=== PATIENT | female | born 1960 | race African-American/Black ===

== ENCOUNTER 2019-12-14 18:06 | Emergency (ER) | payer BC ==
[2019-12-14] MEDS ORDERED: IBUPROFEN 400 MG TABLET PO ONE (18:18)
[2019-12-14] MEDS ORDERED: NORMAL SALINE 1000 ML 1,000 ML IV ONE (19:15)
[2019-12-14] MEDS ORDERED: ACETAMINOPHEN 325 MG TABLET PO ONE (19:16)
--- NOTE | 2019-12-14 19:19 | ER Document Report ---
ED Flu Like - General TRAVEL OUTSIDE OF THE [place] IN LAST 30 DAYS: No <ROSALIE CANAS J - Last Filed: 12/14/19 19:16> <SACHI PRATHER Malia - Last Filed: 12/15/19 00:36> - General Chief Complaint: Fever Stated Complaint: FEVER/COUGH Time Seen by Provider: 12/14/19 19:09 Primary Care Provider: AUDELIA NGUYEN MD [Primary Care Provider] - Follow up in 3-5 days Notes: CHIEF COMPLAINT: Cough and fever for 1 day HPI: 59-year-old female presenting to the emergency department complaining of cough and fever for 1 day. Mild headache. Denies chest pain shortness of breath abdominal pain nausea vomiting or dysuria. Patient states cough is dry. Patient does complain of generalized myalgia ROS: See HPI - all other systems were reviewed and are otherwise negative Constitutional: + fever Eyes: no drainage, no blurred vision ENT: no runny nose, no sore throat Cardiovascular: no chest pain Resp: no SOB, + cough GI: no vomiting, no diarrhea, no abdominal pain : no dysuria Integumentary: no rash Allergy: no hives Musculoskeletal: no extremity pain or swelling Neurological: no numbness/tingling, no weakness MEDICATIONS: I agree with the patient medications as charted by the RN. ALLERGIES: I agree with the allergies as charted by the RN. PAST MEDICAL HISTORY/PAST SURGICAL HISTORY: Reviewed and agree as charted by RN. SOCIAL HISTORY: Reviewed and agree as charted by RN. FAMILY HISTORY: No significant familial comorbid conditions directly related to patient complaint EXAM: Reviewed vital signs as charted by RN. CONSTITUTIONAL: Alert and oriented and responds appropriately to questions. Well-appearing; well-nourished, mild distress secondary to discomfort HEAD: Normocephalic; atraumatic EYES: PERRL; Conjunctivae clear, sclerae non-icteric ENT: normal nose; no rhinorrhea; moist mucous membranes; pharynx without lesions noted, no uvula edema or deviation, no tonsillar hypertrophy, phonation normal NECK: Supple without meningismus; non-tender; no cervical lymphadenopathy, no masses CARD: RRR; no murmurs, no clicks, no rubs, no gallops; symmetric distal pulses RESP: Normal chest excursion without splinting or tachypnea; breath sounds clear and equal bilaterally; no wheezes, no rhonchi, no rales, pulse oximetry 97% on room air not hypoxic ABD/GI: Normal bowel sounds; non-distended; soft, non-tender, no rebound, no guarding; no palpable organomegaly or masses. BACK: The back appears normal and is non-tender to palpation, there is no CVA tenderness EXT: Normal ROM in all joints; non-tender to palpation; no cyanosis, no effusion s, no edema SKIN: Normal color for age and race; warm; diaphoretic; good turgor; no acute lesions noted NEURO: Moves all extremities equally; Motor and sensory function intact PSYCH: The patient's mood and manner are appropriate. Grooming and personal hygiene are appropriate. MDM: 59-year-old female with upper respiratory symptoms for 1 day. Will obtain chest x-ray for pneumonia. Will obtain flu swab. Will check basic screening labs, hydrate patient treat fever and reassess. Report will be given to oncoming shift to follow and disposition (ROSALIE CANAS) - Related Data Allergies/Adverse Reactions: aspirin Allergy (Verified 12/14/19 18:14) Sulfa (Sulfonamide Antibiotics) Allergy (Verified 12/14/19 18:14) Past Medical History - Social History Smoking Status: Never Smoker Patient has suicidal ideation: No Patient has homicidal ideation: No <ROSALIE CANAS - Last Filed: 12/14/19 19:16> - Social History Smoking Status: Unknown if Ever Smoked Family History: Other - did not review <SACHI PRATHER R - Last Filed: 12/15/19 00:36> Physical Exam - Vital signs Vitals: Temp Pulse Resp BP Pulse Ox 101.6 F H 78 16 153/90 H 97 12/14/19 18:14 12/14/19 18:14 12/14/19 18:14 12/14/19 18:14 12/14/19 18:14 Course - Laboratory Result Diagrams: 12/14/19 20:21 12/14/19 20:21 <SACHI PRATHER - Last Filed: 12/15/19 00:36> - Re-evaluation Re-evalutation: 12/14/19 20:15 Report received from MANSI Foster. Evaluated pt and discussed results with pt. Offered testing for Coronavirus and pt declines at this time, states she has had no overseas travel or contact with anyone that has travelled overseas. Pt still finishing up IV fluids. Pt states she is feeling better. Return precautions given. Pt voices understanding and agrees with plan of care. (SACHI PRATHER) - Vital Signs Vital signs: Temp Pulse Resp BP Pulse Ox 98.2 F 68 18 155/70 H 99 12/14/19 21:45 12/14/19 21:45 12/14/19 21:45 12/14/19 21:45 12/14/19 21:45 - Laboratory Laboratory results interpreted by me: 12/14/19 12/14/19 20:21 20:21 Hgb 10.7 L Hct 33.1 L MCV 79 L MCH 25.6 L RDW 16.2 H [place] % (Auto) 17.6 H Sodium 135.9 L Glucose 111 H Discharge <ROSALIE CANAS - Last Filed: 12/14/19 19:16> <SACHI PRATHER - Last Filed: 12/15/19 00:36> - Discharge Clinical Impression: Influenza-like syndrome Condition: Stable Disposition: HOME, SELF-CARE Instructions: Viral Syndrome (OM) Additional Instructions: Your chest x-ray did not show any pneumonia. Your flu test was negative however your symptoms are consistent with flu like illness. Please alternate Tylenol/Motrin every 3 hours, for example: take tylenol now, and then take Motrin 3 hours later, and then take Tylenol 3 hours later, etc. Take zofran as needed for nausea/vomiting. Rest. Drink plenty of fluids. Follow up with your primary care doctor in 3-5 days. Return to ER for any worsening symptoms, including coughing up blood, shortness of breath, fever not controlled by medi cation, vomiting not controlled by medication, abdominal pain, chest pain, dizziness, or any other symptoms that are concerning to you. Prescriptions: Ondansetron [Zofran Odt 4 mg Tablet] 4 mg PO Q4HP PRN #30 tab.rapdis PRN Reason: Forms: Return to Work Referrals: AUDELIA NGUYEN MD [Primary Care Provider] - Follow up in 3-5 days
--- NOTE | 2019-12-14 19:47 | RADIOLOGY REPORT (SQ) ---
EXAM DESCRIPTION: CHEST 2 VIEWS COMPLETED DATE/TIME: 12/14/2019 7:40 pm REASON FOR STUDY: cough fever COMPARISON: None. EXAM PARAMETERS: NUMBER OF VIEWS: two views TECHNIQUE: Digital Frontal and Lateral radiographic views of the chest acquired. RADIATION DOSE: NA LIMITATIONS: none FINDINGS: LUNGS AND PLEURA: No opacities, masses or pneumothorax. No pleural effusion. MEDIASTINUM AND HILAR STRUCTURES: No masses or contour abnormalities. HEART AND VASCULAR STRUCTURES: Heart normal size. No evidence for failure. BONES: No acute findings. HARDWARE: None in the chest. OTHER: No other significant finding. IMPRESSION: NO ACUTE RADIOGRAPHIC FINDING IN THE CHEST. TECHNICAL DOCUMENTATION: JOB ID: [id number] [employer]- All Rights Reserved Reading location - IP/workstation name: [email or web address]
[2019-12-14 19:48] LABS: A TYPE INFLUENZA AG NEGATIVE (NEGATIVE); B INFLUENZA AG NEGATIVE (NEGATIVE)
[2019-12-14 20:39] LABS: ABSOLUTE MONOCYTES (AUTO) 0.8 10^3/uL (0.1-1.4); ABSOLUTE NEUT (AUTO) 2.2 10^3/uL (1.7-8.2); BASOPHILS % (AUTO) 0.7 % (0-2); EOSINOPHILS % (AUTO) 0.1 % (0-6); TOTAL CELLS COUNTED % (AUTO) 100 %
[2019-12-14 20:43] LABS: HEMATOCRIT 33.1 % (36.0-47.0); HEMOGLOBIN 10.7 g/dL (12.0-15.5); MEAN CORPUSCULAR HEMOGLOBIN 25.6 pg (27.0-33.4); MEAN CORPUSCULAR HGB CONC 32.5 g/dL (32.0-36.0); MEAN CORPUSCULAR VOLUME 79 fl (80-97); PLATELET COUNT 213 10^3/uL (150-450); RED CELL DISTRIBUTION WIDTH 16.2 % (11.5-14.0); SEGMENTED NEUTROPHILS % (AUTO) 50.7 % (42-78); WHITE BLOOD COUNT 4.4 10^3/uL (4.0-10.5)
[2019-12-14 20:44] LABS: ABSOLUTE LYMPHOCYTES (AUTO) 1.4 10^3/uL (0.5-4.7); LYMPHOCYTES % (AUTO) 30.9 % (13-45); MONOCYTES % (AUTO) 17.6 % (3-13)
[2019-12-14 20:49] LABS: ALBUMIN 3.6 g/dL (3.5-5.0); ALKALINE PHOSPHATASE 83 U/L (38-126); ANION GAP 8 (5-19); ASPARTATE AMINO TRANSFERASE 20 U/L (14-36); BILIRUBIN,DIRECT 0.2 mg/dL (0.0-0.4); BILIRUBIN,TOTAL 0.5 mg/dL (0.2-1.3); BLOOD UREA NITROGEN 10 mg/dL (7-20); CALCIUM 8.4 mg/dL (8.4-10.2); CARBON DIOXIDE 27 mmol/L (22-30); CHLORIDE 101 mmol/L (98-107); GLUCOSE 111 mg/dL (75-110); POTASSIUM 3.7 mmol/L (3.6-5.0); TOTAL PROTEIN 7.1 g/dL (6.3-8.2)
[2019-12-14 22:32] VITALS: BP 155/70
== END 2019-12-14 21:45 | disposition home or self-care (01) ==
LOC: ER 18:06
DX: J11.1 Influenza due to unidentified influenza virus with other respiratory manifestations (principal); R50.9 Fever, unspecified; R05 Cough; R51 Headache; M79.10 Myalgia, unspecified site
CPT/HCPCS: 99283; 96360; 36415; 87040; 85025; 80053; 87804; 71046; J3490; J7030